=== PATIENT | female | born 1935 | race Caucasian/White ===

== ENCOUNTER 2016-09-27 15:41 | Emergency (ER) | payer MEDICARE, OTHER ==
[2016-09-27 17:57] LABS: Hematocrit 40 % (35-47); Mean Corpuscular HGB Conc 33 g/dl (31-36); Mean Corpuscular Hemoglobin 30 pg (27-31); Mean Corpuscular Volume 91 fL (80-97); Mean Platelet Volume 9 um3 (7.4-10.4); Red Blood Count 4.39 10^6/ul (4.0-5.4); Red Cell Distribution Width 14 % (10.5-15); White Blood Count 5.9 10^3/ul (3.5-10.8)
[2016-09-27 18:18] LABS: ALT 11 U/L (7-52); AST 13 U/L (13-39); Albumin 3.4 g/dL (3.2-5.2); Alkaline Phosphatase 49 U/L (34-104); Anion Gap 7 mmol/L (2-11); BUN/Creatinine Ratio 35.3 (8-20); Blood Urea Nitrogen 24 mg/dL (6-24); CO2 Carbon Dioxide 24 mmol/L (22-32); Calcium 8.5 mg/dL (8.6-10.3); Chloride 109 mmol/L (101-111); EGFR African American 106.5 (>60); EGFR Non-African American 82.8 (>60); Globulin 2.6 g/dL (2-4); Glucose 86 mg/dL (70-100); Potassium 3.7 mmol/L (3.5-5.0); Sodium 140 mmol/L (133-145)
[2016-09-27 19:02] LABS: Acetaminophen < 15 mcg/mL; Alcohol < 10 mg/dL (<10); Salicylate < 2.50 mg/dL (<30)
[2016-09-27 21:35] LABS: Urine Bacteria 2+ (Absent); Urine Bilirubin Negative (Negative); Urine Glucose Negative (Negative); Urine Nitrite Positive (Negative)
[2016-09-27 21:37] LABS: Benzodiazepine Urine Screen None Detected (None Detect)
[2016-09-27] MEDS ORDERED: Nitrofurantoin Macrocrystals* 100 MG CAP PO ONE (22:21)
[2016-09-28] MEDS ORDERED: Metoprolol Tartrate TAB* 25 MG PO ONE (11:01)
[2016-09-28] MEDS ORDERED: Divalproex DR TAB(*) 500 MG PO ONE (11:01)
[2016-09-28] MEDS ORDERED: Levothyroxine TAB* 75 MCG TAB PO SCH (11:13)
[2016-09-28] MEDS ORDERED: Ciprofloxacin 400MG IVPREMIX(* 400 MG/200 ML BAG IVPB ONE (12:04)
[2016-09-28] MEDS ORDERED: Ciprofloxacin TAB* 500 MG PO ONE (13:11)
[2016-09-28 15:47] VITALS: BP 110/64
--- NOTE | 2016-09-28 17:43 | ED ---
Nina Ross Thomas, scribed for Haider Quigley MD on 09/28/16 at 1545 . Progress - Progress Note Progress Note: This patient was a sign out from Dr. Ibrahim with a request to follow up for MHE. The patient was medically cleared by Dr. Gay and she was awaiting MHE. Dr. Young, psychiatry, saw the patient and cleared her, stating that her symptoms were secondary to dementia. The patient was found to be having a UTI and the patient was given ciprofloxacin. At this point, the custodial declined taking the patient back but I spoke with the nurse manager pet of the custodial and we concluded that the patient can be safely discharged to the custodial. The patient was eating and drinking. She is alert and oriented. She will be discharged back to the custodial. - Consult/PCP Consult/PCP: Dr. Young, Psychiatry Course/Dx - Diagnoses Provider Diagnoses: Dementia, UTI (urinary tract infection) The documentation as recorded by the Nina lux Thomas accurately reflects the service I personally performed and the decisions made by me, Haider Quigley MD.
[2016-09-29] MEDS ORDERED: Levothyroxine TAB* 75 MCG TAB PO SCH (06:00)
== END 2016-09-28 17:05 | disposition home or self-care (01) ==
LOC: ED 15:41
DX: F03.90 Unspecified dementia, unspecified severity, without behavioral disturbance, psychotic disturbance, mood disturbance, and anxiety (principal); N39.0 Urinary tract infection, site not specified
CPT/HCPCS: 36415; 80053; 80307; 80320; 80329; 81003; 81015; 84443; 85025; 87086; 99283; A9270-GY; G0480

== ENCOUNTER → 2018-07-02 19:05 | Emergency (ER) | payer MEDICARE, OTHER ==
[~2018-07-02 19:05] MED LIST: LORazepam INJ* 2 MG/ML 1 ML VIAL IM ONE; Lorazepam PYXIS KEY PRN
--- NOTE | 2018-07-02 19:13 | ED ---
Adult Trauma - HPI Summary HPI Summary: LEVEL 5 CAVEAT: HPI LIMITED DUE TO PATIENT CONDITION, DEMENTIA. An 83 y/o F brought in by ambulance from [place] presents to ED s/p unwitnessed fall onset [employer]. She has a small laceration to her R forehead. Patient is on Xarelto, valproic acid. DNR on Molst form provided. Per EMS: Patient said "I fell out of bed." She normally ambulates with a walker, but not using it recently. [place] staff felt patient did not have AMS. En route, vitals were HR: 66 bpm, resp: 18. No POC blood sugar taken. At bedside, patient says she fell out of bed and it hurts. Associated sx: upper back pain, R shoulder pain, neck pain. Vitals at bedside: HR: 70bpm. BP: 152/68. Sat O2: 97%. Home Medications Medication Instructions Recorded Confirmed Type Cholecalciferol [Vitamin D3] 50,000 unit PO MONTHLY 09/27/16 09/27/[address] TAB(*) [Depakote DR 250 mg PO DAILY 09/27/16 09/27/16 History TAB(*)] Divalproex DR TAB(*) [Depakote 500 mg PO BID 09/27/16 09/27/16 History (*)] Levothyroxine TAB* [Synthroid TAB*] 75 mcg PO DAILY 09/27/16 09/27/16 History Metoprolol Tartrate TAB* 25 mg PO BID 09/27/16 09/27/16 History [Lopressor TAB*] Rivaroxaban TAB(*) [Xarelto 20 mg] 20 mg PO DAILY 09/27/16 09/27/16 History Sennosides/Docusate Sodium 2 tab PO BID 09/27/16 09/27/16 History [Senna-S 8.6-50 mg] risperiDONE TAB* [RisperDAL*] 0.5 mg PO BID 09/27/16 09/27/16 History Ciprofloxacin TAB* [Cipro 250 MG 250 mg PO BID #5 tab 09/28/16 Rx Tab*] - History of Current Complaint Stated Complaint: COSTA HEAD INJURY PER EMS Hx Obtained From: Patient, EMS, Medical Records Hx From Patient Unobtainable Due To: Dementia Mechanism of Injury: Blunt Trauma, Fall Loss of Consciousness: unsure - unwitnessed fall Onset/Duration: Traumatic, Still Present Onset of Pain: Immediate, Prior to Arrival Location: Head - R forehead Associated Signs & Symptoms: Positive: Other: - pos: neck pain, upper back pain , R shoulder pain - Additional Pertinent History Primary Care Physician: [facility] - Allergy/Home Medications Allergies/Adverse Reactions: Allergies Allergy/AdvReac Type Severity Reaction Status Date / Time codeine Allergy Unknown Unknown Verified 07/02/18 20:22 Reaction Details Home Medications: Home Medications Escitalopram Oxalate [Lexapro 10 mg] 10 mg PO DAILY 07/02/18 [History Confirmed 07/02/18] Nystatin TOP POWDER* 1 applic TOPICAL TID 07/02/18 [History Confirmed 07/02/18] Rivaroxaban TAB(*) [Xarelto 20 mg] 20 mg PO DAILY 07/02/18 [History Confirmed ] PMH/Surg Hx/FS Hx/Imm Hx Previously Healthy: No - Vitamin D deficiency Endocrine/Hematology History: Reports: Hx Diabetes - NIDDM, Hx Thyroid Disease - hypothydroid Cardiovascular History: Reports: Hx Atrial Fibrillation, Hx Hypertension, Other Cardiovascular Problems/Disorders - arrhythmia-unspecified GI History: Reports: Hx Gastroesophageal Reflux Disease, Hx Hiatal Hernia, Other GI Disorders - esophagitis History: Reports: Hx Kidney Infection, Other Problems/Disorders - UTI's Musculoskeletal History: Reports: Hx Arthritis - osteoarthritis, Hx Fibromyalgia Sensory History: Reports: Hx Contacts or Glasses, Hx Hearing Problem Opthamlomology History: Reports: Hx Contacts or Glasses Neurological History: Reports: Hx Dementia Psychiatric History: Reports: Hx of Violent Episodes Against Others Denies: Hx Eating Disorder - Surgical History Surgery Procedure, Year, and Place: Right knee surgery - Family History Known Family History: Positive: Unknown Family History: LEVEL 5 CAVEAT: FHx LIMITED DUE TO PT CONDITION, DEMENTIA - Social History Occupation: Retired Lives: At [facility] Alcohol Use: None Hx Substance Use: No Substance Use Type: Reports: None Hx Tobacco Use: No Smoking Status (MU): Never Smoked Tobacco Review of Systems - ROS Summary Review of Systems Summary: LEVEL 5 CAVEAT: ROS LIMITED DUE TO PATIENT CONDITION, DEMENTIA. Musculoskeletal: Other - pos: back pain, R shoulder pain, neck pain Skin: Other - small lac and hematoma to R forehead All Other Systems Reviewed And Are Negative: No Physical Exam - Summary Physical Exam Summary: Appearance: Ill-appearing, moderate pain distress, well-nourished Skin: Warm, color reflects adequate perfusion, dry Head: Superficial 2 cm lac in middle of a 5 cm hematoma on R forehead. Eyes: Conjunctiva clear ENT: Normal inspection Neck: Supple, no nodes, no JVD Respiratory: Lungs clear, normal breath sounds, no respiratory distress Cardio: RRR, No murmur, pulses normal, brisk capillary refill Abdomen: Soft, nontender Bowel sounds: Present Musculoskeletal: Strength Intact/ROM intact, no calf tenderness, no edema. Psychological: Normal Neuro: Alert, muscle tone normal, no focal deficit, answering questions appropriately Triage Information Reviewed: Yes Vital Signs Reviewed: Yes - [place] Coma Scale Best Eye Response: 4 - Spontaneous Best Motor Response: 6 - Obeys Commands Best Verbal Response: 4 - Confused Coma Scale Total: 14 Diagnostics - Laboratory Result Diagrams: 07/02/18 21:35 07/02/18 21:35 Lab Statement: Any lab studies that have been ordered have been reviewed, and results considered in the medical decision making process. - Radiology R SHOULDER XR Radiology Interpretation Completed By: ED Physician Summary of Radiographic Findings: Scoliosis. No acute changes. CXR Radiology Interpretation Completed By: ED Physician Summary of Radiographic Findings: R distal clavicle fracture. - CT C SPINE CT Interpretation Completed By: Radiologist Summary of CT Findings: IMPRESSION: 1. No cervical spine traumatic abnormalities. 2. Moderate multilevel cervical spondylopathy. ED provider has reviewed this report. BRAIN CT CT Interpretation Completed By: Radiologist Summary of CT Findings: IMPRESSION: 1. Right frontal contusion/hematoma with no acute intracranial abnormality. 2. Age-related atrophy and mild chronic small vessel ischemic disease. ED provider has reviewed this report. T SPINE CT Interpretation Completed By: Radiologist Summary of CT Findings: IMPRESSION: 1. No thoracic spine traumatic abnormalities. 2. Mild multilevel thoracic spondylopathy. ED provider has reviewed this report. - EKG 2114 Cardiac Rate: NL - 65 bpm EKG Rhythm: Sinus Rhythm EKG Comparison: No Significant Change - from EKG on 07/31/15. Summary of EKG Findings: An EKG at [address], nml QTc, and axis - 10. Acute in lead III. Flat ST segments in V4-V6. EKG read and interpreted by ED physician. Re-Evaluation - Re-Evaluation 1 Re-Evaluation Time: 19:23 Change: Unchanged Comment: Discussing case with daughter now present at bedside. 2 Re-Evaluation Time: 22:11 Change: Improved Comment: Discussing R clavicle fracture with patient and plan for discharge. Forehead lac is not actively bleeding. Patient denies pain and feels OK. Adult Trauma Course/Dx - Course Course Of Treatment: Pt is an 83 y/o F with dementia brought in by ambulance from [place] s/p unwitnessed fall with small lac to R forehead. Patient c/o upper back, neck and R shoulder pain. PE finds superficial 2cm lac in middle of a 5cm hematoma on R forehead. 1916: Called emergency contact, Caityjessica Nayakboby ), left message. Critical lab value: lactic acid: 2.2. C-Spine CT shows "1. No cervical spine traumatic abnormalities. 2. Moderate multilevel cervical spondylopathy." Brain CT shows "1. Right frontal contusion/hematoma with no acute intracranial abnormality. 2. Age-related atrophy and mild chronic small vessel ischemic disease." T Spine CT shows "1. No thoracic spine traumatic abnormalities. 2. Mild multilevel thoracic spondylopathy.". CXR shows scoliosis, no acute findings. R shoulder XR shows R distal clavicle fracture. An EKG at 2115 shows NSR at [address] nml [address], nml QTc, and axis -10. Acute in lead III. Flat ST segments in V4-V6. EKG is similar to EKG on 07/31/15. Patient will be discharged home to follow up with Dr. Menard, PCP. Allergies noted. High blood pressure noted. Pt medications reviewed this visit. Nurses note reviewed. - Diagnoses Provider Diagnoses: Fall, Hematoma of frontal scalp, Facial laceration, Right clavicle fracture Discharge - Sign-Out/Discharge Documenting (check all that apply): Patient Departure - D/C Patient Received Moderate/Deep Sedation with Procedure: No - Discharge Plan Referrals: Qi Menard MD [Primary Care Provider] - - Attestation Statements Document Initiated by Scribe: Yes Documenting Scribe: SooYoung VanDeMark Provider For Whom Scribe is Documenting (Include Credential): Dr. Aide Mahajan MD Scribe Attestation: Essie Ross, scribed for Dr. Aide Mahajan MD on 07/02/18 at 9254.
[2018-07-02 19:22] VITALS: BP 152/68
[2018-07-02 21:42] LABS: ABS Eosinophils 0.1 10^3/ul (0-0.6); ABS Lymphocytes 0.5 10^3/ul (1.0-4.8); ABS Monocytes 0.5 10^3/ul (0-0.8); ABS Neutrophils 9.5 10^3/ul (1.5-7.7); Eosinophil % 0.5 %; Hematocrit 40 % (35-47); Hemoglobin 13.2 g/dL (12.0-16.0); Lymphocyte % 4.8 %; Mean Corpuscular HGB Conc 33 g/dL (31-36); Mean Corpuscular Hemoglobin 29 pg (27-31); Mean Corpuscular Volume 88 fL (80-97); Mean Platelet Volume 8.7 fL (7.4-10.4); Platelet Count 227 10^3/uL (150-450); Red Cell Distribution Width 15 % (10.5-15); White Blood Count 10.6 10^3/uL (3.5-10.8)
[2018-07-02 21:53] LABS: Activated Partial Thrombo Time 27.2 seconds (26.0-36.3); INR 1.27 (0.82-1.09)
[2018-07-02 22:00] LABS: Albumin 3.5 g/dL (3.2-5.2); Albumin/Globulin Ratio 1.3 (1-3); EGFR African American 86.4 (>60); EGFR Non-African American 71.4 (>60); Globulin 2.8 g/dL (2-4); Magnesium 1.9 mg/dL (1.9-2.7); Potassium 4.2 mmol/L (3.5-5.0); Total Bilirubin 0.5 mg/dL (0.2-1.0); Total Protein 6.3 g/dL (6.4-8.9)
[2018-07-02 22:02] LABS: Troponin I 0.01 ng/mL (<0.04)
[2018-07-02 22:22] LABS: TSH (Thyroid Stimulating Horm) 1.91 mcIU/mL (0.34-5.60)
== END | disposition home or self-care (01) ==
LOC: ED 19:05
DX: S42.001A Fracture of unspecified part of right clavicle, initial encounter for closed fracture (principal); S01.81XA Laceration without foreign body of other part of head, initial encounter; S00.03XA Contusion of scalp, initial encounter; W19.XXXA Unspecified fall, initial encounter; Y92.9 Unspecified place or not applicable; E11.9 Type 2 diabetes mellitus without complications; I10 Essential (primary) hypertension; I48.91 Unspecified atrial fibrillation; K21.9 Gastro-esophageal reflux disease without esophagitis
CPT/HCPCS: 36415; 70450; 71045; 72125; 72128; 80053; 80164; 83605; 83735; 83880; 84443; 84484; 85025; 85379; 85610; 85730; 93005; 96372; 99283; J2060